=== PATIENT | female | born 1985 | race Caucasian/White ===

== ENCOUNTER 2020-05-26 15:40 | Outpatient (REF) | payer OTHER, SELFPAY | END 2020-05-26 15:41 | disposition home or self-care (01) | LOC: HO.LAB 15:40 | PROVIDERS: Visit Provider Internal Medicine | DX: Z20.822 Contact with and (suspected) exposure to COVID-19 (principal) | CPT/HCPCS: C9803; U0003; U0005 ==

== ENCOUNTER 2024-03-10 17:45 | Emergency (ER) | payer OTHER, SELFPAY ==
--- NOTE | ~2024-03-10 | US_ITS ---
CLINICAL HISTORY: RUQ pain tenderness, abn LFTs US abdomen limited Comparison: None Findings: Limited right upper quadrant ultrasound. Visualized pancreas is unremarkable. Liver is 18 cm, grossly within normal limits. Small stones are present within a contracted gallbladder. Gallbladder wall is minimally thickened at 4-6 mm. No pericholecystic fluid. Sonographic Moeller's sign is not reported. Common bile duct is within normal limits 3 mm. Right kidney is 12.8 cm and non hydronephrotic. IMPRESSION: 1. Cholelithiasis with no ultrasound evidence of cholecystitis. Gallbladder wall is minimally thickened, likely attributable to contracted gallbladder. This document has been electronically signed by: Nic Ventura MD, PHD on 03/10/2024 22:09:16
[2024-03-10 17:55] VITALS: BP 131/56; PULSE 72; RESP 18; TEMP 37.1; O2SAT 100; BMI 35.5
--- NOTE | 2024-03-10 18:01 | ED.GENADULT ---
HPI - General Adult General Chief complaint: Abdominal Pain Stated complaint: abd/back pain Time Seen by Provider: 03/10/24 21:04 History of Present Illness ED Provider: Sherron ELLIOTT narrative: The patient is a 38-year-old female. She has a remote history of leukemia and she also has a history of a sarcoma. She also has a history of gastric sleeve surgery a year and a half ago at [facility]. She has received most of her care at [facility]. The patient says that yesterday, on Friday, around noon, she developed epigastric and right upper and flank pain. The pain was severe enough that she went to the emergency room at [facility]. She had some blood tests done but there was a very long wait and she ultimately left because she was feeling better. Today her pain returned at around noon and she decided to come to this hospital instead. Nausea but no vomiting. She has had no urinary discomfort but she has noticed that her urine is dark. She still has a gallbladder. No fevers. She reports that she has a history of a cardiomyopathy. Related Data Allergies Allergy/AdvReac Type Severity Reaction Status Date / Time penicillin G [PENICILLIN G] Allergy Severe SHORTNESS Verified 03/10/24 17:56 OF BREATH ondansetron Allergy Intermediate RASH Verified 03/10/24 17:56 [From ZOFRAN ( HYDROCHLORIDE)] spironolactone Allergy Intermediate CHEST PAIN Verified 03/10/24 17:56 [From ALDACTONE] vancomycin [VANCOMYCIN] Allergy Intermediate RASH Verified 03/10/24 17:56 piperacillin [From ZOSYN] Allergy Mild RASH Verified 03/10/24 17:56 tazobactam [From ZOSYN] Allergy Mild RASH Verified 03/10/24 17:56 Review of Systems Review of Systems: Yes all other systems are reviewed and are negative Physical Exam ED Vital Signs: Vital Signs - 24 hr 03/10/24 17:55 03/10/24 20:45 03/10/24 23:05 Temperature 98.7 F 97.9 F 97.8 F Pulse Rate 72 77 70 Respiratory Rate 18 17 16 Blood Pressure 131/56 L 127/71 126/78 Pulse Oximetry 100 100 98 Oxygen Delivery Method Room Air Room Air Room Air 03/11/24 00:18 Temperature 98.5 F Pulse Rate 64 Respiratory Rate 16 Blood Pressure 120/68 Pulse Oximetry 100 Oxygen Delivery Method Room Air BMI result Body Mass Index 35.5 Const Other: The patient is awake and alert. She is pleasant and cooperative. She does not appear obviously toxic or in distress HENMT Other: The face is symmetrical. ?Mucous membranes moist. Eyes General: appearance normal, both eyes and all related structures Neck Neck: Yes no JVD Resp Effort & Inspection: normal respiratory effort Auscultation: clear to auscultation bilaterally Cardio Rate: regular rate Rhythm: regular rhythm Heart sounds: S1 normal heart sound present and S2 normal heart sound present GI Other: The patient had tenderness in the right upper quadrant initially. Later she was nontender. Skin Other: Skin is dry and unremarkable Neuro Other: The patient is awake and alert with a normal mental status. Cranial nerves are grossly intact. She moves her extremities normally and seems completely neurologically intact. Extrem Other: No peripheral edema. Course Course Course Narrative: This is a rapid medical exam performed by Sonia Miller NP: Additional HPI, ROS, PE not included below will be deferred to primary provider. Patient is a 38-year-old female with history of gastric sleeve presenting with complaint of mid abdominal pain radiating to back. Reports urine darker in color than normal. Last BM Friday. Plan: labs, UA Medications Administered Discontinued Medications Generic Name Dose Route Start Last Admin Trade Name Freq PRN Reason Stop Dose Admin Sodium Chloride 1,000 mls @ 999 mls/hr 03/10/24 23:15 03/10/24 23:50 Ns IV 03/11/24 00:15 999 mls/hr .Q1H1M [facility]MER Administration Medical Decision Making Medical Decision Making [facility] [place] Narrative: The patient is a 38-year-old female who has had a gastric sleeve surgery. She had an episode of epigastric and right upper quadrant and right flank pain yesterday that prompted her to go to an emergency room. She went to the emergency room at [facility]. She ultimately left that hospital yesterday because she was feeling better. Today however she had a recurrence of pain around lunchtime that prompted her to come to the hospital here. She does not appear toxic. Her vital signs are stable. I obtained an ultrasound of her gallbladder that suggested the problem was probably related to the gallbladder. She has gallstones. However the gallbladder is decompressed. This makes me think that the patient probably passed some biliary colic. The patient had abnormal labs consistent with a biliary source of symptoms. Fortunately the patient's pain resolved spontaneously after the ultrasound. I re-examined the patient. She had no ongoing right upper quadrant tenderness or any abdominal symptoms or tenderness at all. That point I hypothesized the patient might have passed a gallstone. The patient seems comfortable being discharged. She has an appointment with her PCP later today or tomorrow. She will be discharged to keep this appointment. She should also contact her gastric sleeve surgeon regarding any imminent need for surgery on her gallbladder. Lab Data 03/10/24 18:21 03/10/24 18:21 Labs: Lab Results 03/10/24 Range/Units 18:21 WBC 7.5 (4.8-10.8) X10*3/uL RBC 4.52 (4.20-5.50) X10*6/uL Hgb 10.5 L (12.0-16.0) g/dl Hct 33.5 L (37.0-47.0) % MCV 74.1 L (80.0-98.0) fL MCH 23.2 L (27.0-33.0) pg MCHC 31.3 (31.0-35.0) g/dl RDW 17.7 H (11.0-16.0) % Plt Count 320 (160-400) X10*3/uL MPV 10.1 (9.4-12.3) fL Immature Gran % (Auto) 0.3 (0.0-0.4) % Neut % (Auto) 57.4 (45-73) % Lymph % (Auto) 30.0 (20-40) % [place] % (Auto) 7.8 (2-11) % Eos % (Auto) 4.0 (0-4) % Baso % (Auto) 0.5 (0-2) % Lymph # (Auto) 2.3 (1.2-4.9) X10*3/uL [place] # (Auto) 0.6 (0.1-1.2) X10*3/uL Eos # (Auto) 0.3 (0.0-0.4) X10*3/uL Baso # (Auto) 0.0 (0.0-0.2) X10*3/uL Abs Immat Gran (auto) 0.02 (0.00-0.03) X10*3/uL Absolute Neuts (auto) 4.3 (2.0-8.3) x10*3/uL Absolute Nucleated RBC 0.000 (0.0-0.012) X10*3/uL Nucleated RBC % (auto) 0.0 (0.0-0.2) /100WBC PT 12.2 (10.9-12.4) SEC INR 1.0 (0.9-1.1) Sodium 138 (135-145) mmol/L Potassium 3.8 (3.3-5.1) mmol/L Chloride 108 (96-108) mmol/L Carbon Dioxide 25 (22-29) mmol/L Anion Gap 9 L (12-20) BUN 18 H (9-16) mg/dL Creatinine 0.69 (0.5-1.4) mg/dL Estim Creat Clear Calc 110.6 Estimated GFR > 60 Random Glucose 97 (60-115) mg/dL Calcium 9.4 (8.4-10.2) mg/dL Total Bilirubin 2.4 H (0.0-1.0) mg/dL AST 820 H (5-31) U/L ALT 885 H (0-31) U/L Alkaline Phosphatase 187 H (39-117) U/L C-Reactive Protein < 0.10 (< or = 0.50) mg/dL Total Protein 8.0 (6.5-8.0) g/dL Albumin 4.4 (3.5-5.0) g/dL Lipase 101 H (8-78) U/L Urine Color Dark Yellow Urine Appearance Cloudy Urine pH 5.5 (5.0-9.0) Ur Specific [place] >= 1.030 H (1.005-1.025) Urine Protein Negative (Neg-Trace) mg/dL Urine Glucose (UA) Negative (Negative) mg/dL Urine Ketones Trace (Negative) mg/dL Urine Blood Negative (Negative) Urine Nitrite Positive H (Negative) Ur Leukocyte Esterase Small (1+) H (Negative) Urine RBC 0-2 (0-2) /HPF Urine WBC 11-20 H (0-5) /HPF Ur Squamous Epith Cells 6-10 (0-2) /HPF Urine Bacteria 4+ (None Seen) Hyaline Casts 0-2 (0-2) /LPF Discharge Plan Discharge Clinical Impression: Biliary colic, Gallstones Patient Disposition: Home, Self-Care Instructions: Biliary Colic (ED), Gallstones (ED) Additional Instructions: I believe the pain that you were experiencing was related to gallstones. I think in fact you may have passed a gallstone. This would be consistent with the changes in your blood tests that relate to your liver and your pancreas. Since your pain has resolved without treatment I do not think you need any additional investigation tonight. Please keep your appointment with your regular doctor tomorrow. He is avoid fatty foods. Avoid fatty and spicy foods help reduce the likelihood of recurrence of problems until you see your surgeon. In addition to seeing your regular primary care doctor tomorrow also contact your surgeon and explained that you had pain that seemed to be related to gallstones and that you had an ultrasound that showed gallstones. If at any point you feel significantly worse please seek medical attention at an emergency room again. Referrals: CHRISTOPHE WEISS [Physician] - (biliary colic) Yordan Crane DO [Primary Care Provider] - (Biliary colic, possible passed stone) Interventions: ED Discharge Assessment Last Done: 03/11/24 00:18 Discharge Date/Time: 03/11/24 00:19 Print Language: Sinhala
[2024-03-10 18:29] LABS: Basophils Percent Auto 0.5 % (0-2); Eosinophils Absolute Auto 0.3 X10*3/uL (0.0-0.4); Hematocrit 33.5 % (37.0-47.0); Hemoglobin 10.5 g/dl (12.0-16.0); Imm Gran Abs Auto 0.02 X10*3/uL (0.00-0.03); Imm Gran Pct Auto 0.3 % (0.0-0.4); Lymphocytes Absolute Auto 2.3 X10*3/uL (1.2-4.9); MANUAL DIFF FLAG NO; Mean Corpuscular HGB Conc 31.3 g/dl (31.0-35.0); Mean Corpuscular Hemoglobin 23.2 pg (27.0-33.0); Mean Corpuscular Volume 74.1 fL (80.0-98.0); Mean Platelet Volume 10.1 fL (9.4-12.3); Monocytes Absolute Auto 0.6 X10*3/uL (0.1-1.2); Monocytes Percent Auto 7.8 % (2-11); Neutrophils Absolute Auto 4.3 x10*3/uL (2.0-8.3); Neutrophils Percent Auto 57.4 % (45-73); Platelet Count 320 X10*3/uL (160-400); Red Blood Count 4.52 X10*6/uL (4.20-5.50); Red Cell Distribution Width 17.7 % (11.0-16.0); White Blood Count 7.5 X10*3/uL (4.8-10.8)
[2024-03-10 18:30] LABS: Appearance Urine Cloudy; Color Urine Dark Yellow; Glucose Urine UA Negative (Negative); Leukocyte Esterase Urine Small (1+) (Negative); Nitrite Urine Positive (Negative); PH 5.5 (5.0-9.0); Specific Gravity - Urine >= 1.030 (1.005-1.025); UMIC TRIGGER UACC YES; Urine Blood Negative (Negative); Urine Ketones Trace mg/dL (Negative); Urine Protein Negative (Neg-Trace)
[2024-03-10 18:32] LABS: Bacteria Urine 4+ (None Seen); Hyaline Casts Urine 0-2 /LPF (0-2); RBC Urine 0-2 /HPF (0-2); UACC Culture Trigger YES
[2024-03-10 18:34] LABS: Prothrombin Time 12.2 SEC (10.9-12.4)
[2024-03-10 18:43] LABS: Alanine Aminotransferase 885 U/L (0-31); Albumin Level 4.4 g/dL (3.5-5.0); Alkaline Phosphatase 187 U/L (39-117); Anion Gap 9 (12-20); Aspartate Amino Transferase 820 U/L (5-31); Bilirubin Total 2.4 mg/dL (0.0-1.0); Blood Urea Nitrogen 18 mg/dL (9-16); Calcium 9.4 mg/dL (8.4-10.2); Carbon Dioxide 25 mmol/L (22-29); Chloride 108 mmol/L (96-108); Creatinine Clr Calc Pharmacy 110.6; Estimated Glomerular Filt Rate > 60; Glucose Random 97 mg/dL (60-115); Lipase 101 U/L (8-78); Potassium 3.8 mmol/L (3.3-5.1); Sodium 138 mmol/L (135-145)
[2024-03-10 20:45] VITALS: BP 127/71; PULSE 77; RESP 17; TEMP 36.6; O2SAT 100
[2024-03-10 21:31] LABS: C Reactive Protein < 0.10 mg/dL (< or = 0.50)
[2024-03-10 23:05] VITALS: BP 126/78; PULSE 70; RESP 16; TEMP 36.6; O2SAT 98
[2024-03-10] MEDS: 0.9 % Sodium Chloride 1,000 ML 999 ML IV (23:50)
[2024-03-11 00:18] VITALS: BP 120/68; PULSE 64; RESP 16; TEMP 36.9; O2SAT 100
== END 2024-03-11 00:19 | disposition home or self-care (01) ==
PROVIDERS: Registered Nurse Emergency; Emergency Provider Emergency Medicine; PCP Family Medicine
DX: K80.50 Calculus of bile duct without cholangitis or cholecystitis without obstruction (principal); K80.20 Calculus of gallbladder without cholecystitis without obstruction; R10.2 Pelvic and perineal pain; R10.11 Right upper quadrant pain; R11.0 Nausea; Z98.84 Bariatric surgery status; Z79.899 Other long term (current) drug therapy
CPT/HCPCS: 36415; 76705; 80053; 81001; 83690; 85025; 85610; 86140; 87086; 87088; 87186; 99283; 99284

== ENCOUNTER → 2024-03-10 21:20 | Outpatient (BNV) | payer OTHER, SELFPAY | PROVIDERS: Emergency Provider Emergency Medicine; PCP Family Medicine; Visit Provider General Practice | DX: R10.11 Right upper quadrant pain (principal) | CPT/HCPCS: 76705 ==